=== PATIENT | female | born 1965 | race Caucasian/White ===

== ENCOUNTER → 2019-10-23 16:13 | Outpatient (CLI) | payer OTHER, SELFPAY ==
--- NOTE | 2019-10-23 16:28 | XR_ITS ---
PROCEDURE: XR CHEST 2V CLINICAL HISTORY: COUGH COMPARISON: CXR CHEST(2 VIEWS-NOT PORTABLE) from 12/04/2014 CXR CHEST(2 VIEWS-NOT PORTABLE) from 02/26/2015 FINDINGS: The cardiomediastinal silhouette and pulmonary vascularity are within normal limits. Left side diaphragmatic eventration/hernia once again noted not significantly changed. Patchy density is present in the right lower lobe suggesting an area of atelectasis or infiltrate. Upper lobes are clear. Previously noted opacity in the right upper lobe is not apparent on today's exam No acute bony abnormalities. IMPRESSION: 1. Patchy infiltrate in the right lung base 2. No change left-sided diaphragmatic hernia/eventration Dictated by: Nilo Garcia MD 10/23/2019 17:03 Electronically signed by Nilo Garcia MD in [place] 10/23/2019 17:03
== END ==
PROVIDERS: PCP Family Medicine; Visit Provider Family Medicine
DX: R05 Cough (principal)
CPT/HCPCS: 71046

== ENCOUNTER → 2020-04-20 16:53 | Outpatient (CLI) | payer OTHER, SELFPAY ==
--- NOTE | 2020-04-20 | XR_ITS ---
PROCEDURE: XR ANKLE RT MIN 3V CLINICAL INDICATION: Posttraumatic pain COMPARISON: XR FOOT RT MIN 3V from 04/20/2020 FINDINGS: There is a nondisplaced oblique fracture involving the distal aspect of the fibula. Fracture exits medially at the level of the ankle joint. The ankle mortise does not appear widened. The talar dome has an unremarkable appearance. IMPRESSION: Nondisplaced distal fibular fracture Dictated by: Nilo Garcia MD 04/21/2020 07:22 Electronically signed by Nilo Garcia MD in [place] 04/21/2020 07:22
--- NOTE | 2020-04-20 | XR_ITS ---
PROCEDURE: XR FOOT RT MIN 3V CLINICAL INDICATION: Posttraumatic pain COMPARISON: No exams were available for comparison FINDINGS: There is a nondisplaced fracture involving the proximal and medial aspect of the proximal phalanx of the 1st toe with extension into the articular surface. A 2nd nondisplaced fracture involves the proximal and medial aspect of the proximal phalanx of the 2nd toe also extending into the articular surface IMPRESSION: Nondisplaced fractures at the proximal aspect of the 1st and 2nd proximal phalanges with apparent intra-articular extension Dictated by: Nilo Garcia MD 04/21/2020 07:25 Electronically signed by Nilo Garcia MD in [place] 04/21/2020 07:25
== END ==
PROVIDERS: PCP Family Medicine; Visit Provider Family Medicine
DX: S93.601A Unspecified sprain of right foot, initial encounter (principal); S93.401A Sprain of unspecified ligament of right ankle, initial encounter
CPT/HCPCS: 73610; 73630

== ENCOUNTER → 2023-05-10 16:20 | Outpatient (CLI) | payer OTHER, SELFPAY | PROVIDERS: Visit Provider Nurse Practitioner Family | DX: M79.674 Pain in right toe(s) (principal); M79.675 Pain in left toe(s); E11.9 Type 2 diabetes mellitus without complications; S91.102A Unspecified open wound of left great toe without damage to nail, initial encounter; B95.7 Other staphylococcus as the cause of diseases classified elsewhere | CPT/HCPCS: 87070; 87077; 87102; 87186; 87205; 87206; 87220 ==

== ENCOUNTER → 2023-06-15 14:03 | Outpatient (CLI) | payer OTHER, SELFPAY ==
--- NOTE | 2023-06-15 14:07 | US_ITS ---
FINAL REPORT CLINICAL HISTORY: decreased pulses in lower extremities, DM, HLD,HTN FINDINGS: LOWER EXTREMITY SEGMENTAL PRESSURE MEASUREMENTS FINDINGS: Pressure indices are as follows: RIGHT LOWER EXTREMITY: thigh: 187 Calf: 183 Ankle, posterior tibial artery: 161 Ankle, dorsalis pedis: 160 Toe: 176 Comments: LEFT LOWER EXTREMITY: thigh: 216 Calf: 207 Ankle, posterior tibial artery: 155 Ankle, dorsalis pedis: 169 Toe: 128 Comments: IMPRESSION: Normal waveforms and pulses. Reviewed, Interpreted and Dictated by John Paul Barron MD Transcribed by Marina Mcmullen Authenticated and [facility]
== END ==
PROVIDERS: PCP Family Medicine; Visit Provider Nurse Practitioner Family
DX: R09.89 Other specified symptoms and signs involving the circulatory and respiratory systems (principal)
CPT/HCPCS: 93923

== ENCOUNTER → 2023-11-02 23:08 | Outpatient (CLI) | payer OTHER, SELFPAY | PROVIDERS: PCP Family Medicine; Visit Provider Nurse Practitioner Family | DX: S91.102A Unspecified open wound of left great toe without damage to nail, initial encounter (principal) | CPT/HCPCS: 87070; 87205 ==

== ENCOUNTER 2024-02-01 16:41 | Outpatient (CLI) | payer OTHER, SELFPAY | END 2024-02-01 23:59 | LOC: LAB.DROPOF 16:41 | PROVIDERS: PCP Nurse Practitioner; Visit Provider Nurse Practitioner | DX: E11.621 Type 2 diabetes mellitus with foot ulcer (principal); Z79.899 Other long term (current) drug therapy | CPT/HCPCS: 87070; 87205 ==

== ENCOUNTER 2024-02-09 10:05 | Outpatient (CLI) | payer OTHER, SELFPAY ==
--- NOTE | 2024-02-09 10:12 | XR_ITS ---
FINAL REPORT CLINICAL HISTORY: Foot Pain FINDINGS: RIGHT FOOT 3 views of the right foot were obtained. There is no acute fracture or dislocation. Visualized joint spaces are normally aligned. There are mild degenerative changes. Calcaneal spurs are noted. Soft tissues are unremarkable. IMPRESSION: No acute bony abnormality. Reviewed, Interpreted and Dictated by Alex Peñaloza III, MD Transcribed by Marina Mcmullen Authenticated and [facility]
== END 2024-02-09 23:59 ==
PROVIDERS: PCP Family Medicine; Visit Provider Nurse Practitioner
DX: M79.671 Pain in right foot (principal)
CPT/HCPCS: 73630